=== PATIENT | female | born 1980 | race Asian ===

== ENCOUNTER 2019-06-23 00:26 | Emergency (ER) | payer SELFPAY ==
--- NOTE | 2019-06-23 01:00 | PDOC ---
History of Present Illness - General Stated Complaint: FALL Time Seen by Provider: 06/23/19 01:00 - History of Present Illness Initial Comments: 06/23/19 01:07 The patient is a 39 year old female with no reported significant PMH who presents c/o back pain. Patient was walking down a set of wet concrete stairs she slipped and fell backward on her back and L side. No head trauma, no LOC. Patient states she laid on the ground for two minutes before ambulating. As pain persisted patient then drove herself to the hospital. Now c/o burning pain in her L buttock that does not radiate, exacerbated by laying flat on her back, or when standing. Denies any bowel or bladder incontinence, numbness/ tingling. NKDA Past History - Past Medical History Allergies/Adverse Reactions: Allergies Allergy/AdvReac Type Severity Reaction Status Date / Time No Known Allergies Allergy Verified 06/23/19 01:14 Home Medications: Ambulatory Orders NK [No Known Home Medication] 06/23/19 Review of Systems - Review of Systems Constitutional: No: Chills, Fever HEENTM: No: Recent change in vision Respiratory: No: Cough, Shortness of Breath Cardiac (ROS): No: Chest Pain, Lightheadedness, Palpitations ABD/GI: No: Constipated, Diarrhea, Nausea, Vomiting : No: Burning, Dysuria Musculoskeletal: Yes: Back Pain *Physical Exam - Physical Exam Comments: 06/23/19 01:27 Triage VS reviewed General: Alert, moves all 4 extremities, NAD, Lying on R side on stretcher Neuro: A&O x3, CN II-XII intact, no focal neurologic deficit noted on exam MSK: No midline C-spine, L/T/S TTP, L gluteal TTP CV: S1, S2 Respiratory: CLTA B/L, no wheeze/crackle Medical Decision Making - Medical Decision Making 06/23/19 01:25 39 y/o female s/p mechanical fall. Ambulatory post fall VS unremarkable L gluteal TTP, no midline C, L/T/S TTP No SiSx of cauda equina Suspect muscle contusion given gluteal TTP, however since patient has mild sacral TTP will obtain sacral XR to r/o fracture. Analgesia with anti spasmodic and will add on NSAID pending negative urine HCG. 06/23/19 01:52 Urine negative - will add on IM Toradol for analgesia 06/23/19 02:27 My read of sacral XR shows no sacrum/pelvic fracture Patient reassessed @ bedside, continues to c/o pain, Toradol pending will reassess 06/23/19 03:02 Patient reassessed @ bedside. Symptomatically improved. Ambulatory. D/C home with return precautions. I discussed the physical exam findings, ancillary test results and final diagnoses with the patient. I answered all of the patient's questions. The patient was satisfied with the care received and felt comfortable with the discharge plan and treatment plan. The patient will return to the Emergency Department with any new, persistent or worsening symptoms. Discharge - Discharge Information Problems reviewed: Yes Clinical Impression/Diagnosis: Back pain Condition: Good Disposition: HOME - Admission No - Follow up/Referral - Patient Discharge Instructions Additional Instructions: You can take Tylenol (up to 4000 mg total daily) alternating with Motrin (up to 3200 mg daily) every 4-6 hours for pain for the next 5 days. Return to the Emergency Department for any new/worsening/concerning symptoms. - Post Discharge Activity Work/Back to School Note: Back to Work
--- NOTE | 2019-06-23 01:10 | PDOC ---
Attending Attestation - Resident Resident Name: SeveroPratima - ED Attending Attestation I have performed the following: I have examined & evaluated the patient, The case was reviewed & discussed with the resident, I agree w/resident's findings & plan, Exceptions are as noted - HPI HPI: 06/23/19 01:24 39y F no pmhx presents with complaint of L lower back pain - pt states she was going down stairs earlier, slipped and landed on her L buttock/back. pt did note some burning type pain in the area of impact but no radiation of the pain donw the leg. pt denies any urinary or bowel incontinence. pt denies any loc, neck pain, numbenss/tingling/weakness. pain worse when she sits down on the area and when putting weight on her L leg. has not taken any medications yet. - Physicial Exam PE: 06/23/19 01:28 on exam: no acute distress, but lying prone on bed +mild ttp just lateral to midline on left proximal buttock on sacrum. +erythema but no bruising visible. no focal bony tenderness on lumbar back. - Medical Decision Making 06/23/19 01:28 likely contusion will obtain xray to r/o fx will give nsaids/flexeril 06/23/19 04:28 pt feeling improved will dc with outpatient management pmd fu return precautions were discussed
[2019-06-23] MEDS ORDERED: CYCLOBENZAPRINE HCL 10 MG TABLET (FP) PO ONE (01:13)
[2019-06-23] MEDS ORDERED: CYCLOBENZAPRINE HCL 10 MG TABLET (FP) ONE (01:16)
[2019-06-23 01:20] VITALS: BP 140/82; PULSE 65; TEMP 97.9; BMI 26.4
[2019-06-23] MEDS ORDERED: KETOROLAC TROMETHAMINE 30 MG/1 ML VIAL IM ONE (01:52)
[2019-06-23] MEDS ORDERED: KETOROLAC TROMETHAMINE 30 MG/1 ML VIAL ONE (02:09)
== END 2019-06-23 03:08 | disposition home or self-care (01) ==
LOC: JER 00:26
PROC: 3E0233Z Introduction of Anti-inflammatory into Muscle, Percutaneous Approach (ICD-10-PCS; principal; 2019-06-23)
DX: M54.9 Dorsalgia, unspecified (principal); W10.9XXA Fall (on) (from) unspecified stairs and steps, initial encounter; Y93.89 Activity, other specified; Y92.89 Other specified places as the place of occurrence of the external cause
CPT/HCPCS: 72220-TC-FY; 84703; 99282-25